=== PATIENT | male | born 2000 | race Caucasian/White ===

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

== ENCOUNTER 2021-12-03 17:07 | Emergency (ER) | payer OTHER, SELFPAY ==
--- OUTSIDE RECORDS SUMMARY | 2021-12-03 17:10 | XMS REPORT | Continuity of Care Document ---
:2000 Author Organization [facility] Address [address] [place] [address] Care Team Providers Name Role Phone Lab, Fam Pob I Attending Clinician Unavailable Miguel Jones Attending Clinician Miguel LOCKE Attending Clinician Unavailable Doctor Unassigned, Name Attending Clinician Unavailable Saqib GUILLORY Attending Clinician Payers Payer Name Policy Type Policy Number Effective Date Expiration Date S kizzy [employer] II [id number] 2020 00:00:00 Problems This patient has no known problems. Allergies, Adverse Reactions, Alerts Allergy Allergy Status Severity Reaction(s) Onset Inactive Treating Comm ents Source Name Type Date Date Clinician NO KNOWN Drug Active Univers ALLERGIE Class ity of S [facility] Social History Social Habit Start Date Stop Date Quantity Comments Source Exposure to Not sure [facility] SARS-CoV-2 (event) [facility] 2000 [facility] [place] [facility] Smoking Status Start Date Stop Date Source Unknown if ever [facility] Medications This patient has no known medications. Immunizations Ordered Filled Immunization Date Status Comments [facility] e Immunization Name Name Polio (IPV/OPV) 2004-01-17 Completed Universit y of 00:00:00 [facility] Polio (IPV/OPV) 2004-01-17 Completed Universit y of 00:00:00 [facility] Polio (IPV/OPV) 2004-01-17 Completed Universit y of 00:00:00 [facility] Polio (IPV/OPV) 2004-01-17 Completed Universit y of 00:00:00 [facility] DTAP 2004-01-16 Completed University of 00:00:00 [facility] 2004-01-16 Completed University of 00:00:00 [facility] DTAP 2004-01-16 Completed University of 00:00:00 [facility] 2004-01-16 Completed University of 00:00:00 [facility] DTAP 2004-01-16 Completed University of 00:00:00 [facility] 2004-01-16 Completed University of 00:00:00 [facility] DTAP 2004-01-16 Completed University of 00:00:00 [facility] 2004-01-16 Completed University of 00:00:00 [facility] Procedures Procedure Date / Time Performed Performing Clinician [facility] e ASSIGNMENT OF BENEFITS 2020-12-12 01:56:49 Doctor Unassigned, No [facility] Name [facility] [place] [facility] Encounters Start End Encounter Admission Attending Care Care Encounter Source Date/Time Date/Time Type Type Clinicians Facility Department ID 2020-12-11 2020-12-11 Laboratory Lab, Adc Fam Pob I [facility] [id number]. [id number] Univers 20:56:18 20:59:12 Only Gissell Locke [facility] [id number] ity of [place] [id number] Ayan as Professio [phone] [facility] [address] 2020-12-11 2020-12-11 Outpatient R [facility] [id number] Univers 20:40:00 20:40:00 [id number] ity of [facility] 2020-12-11 2020-12-11 [facility] [id number] Univers 20:40:00 20:40:00 GISSELL solorio [facility] 2020-12-11 2020-12-11 Orders Doctor SINGH [id number] Univers 00:00:00 00:00:00 Only HOANG Corral [id number] [facility] [id number] Ayan as [phone] [address] 2020-08-07 2020-08-07 Outpatient [facility] [id number] Univers 19:20:00 19:20:00 GISSELL solorio [facility] 2020-08-07 2020-08-07 Laboratory Lab, Adc Fam Pob I [place] [id number]. [id number] Univers 18:14:50 18:34:[address] [facility] [id number] ity of [place] [id number] [facility] [phone] [facility] [address] 2020-08-07 2020-08-07 Letter Doctor SAMANTHA [id number] Univers 00:00:00 00:00:00 (Out) Unassigned, LYNN HAVEN [id number] ity of [place] [facility] [id number] [facility] as [phone] [place] [address] Branch Results This patient has no known results.
[2021-12-03] MEDS ORDERED: TETANUS & DIPHTHERIA TOX,ADULT 0.5 ML VIAL ONE (19:42)
--- NOTE | 2021-12-03 19:48 | ER ---
Nurse's Notes [facility] Name: Declan Ann Age: 21 yrs Sex: Male : 2000 Arrival Date: 12/03/2021 Time: 17:38 Bed 11 Private MD: Diagnosis: Leg Laceration/ Open wound of lower leg-left Presentation: 12/03 17:38 Chief complaint: Patient states: Laceration to left benitez 6 days ago. Pt is worried it ld1 may be infected. Coronavirus screen: At this time, the client does not indicate any symptoms associated with coronavirus-19. Ebola Screen: No symptoms or risks identified at this time. Complicating Factors: There are no complicating factors for this patient. Initial Sepsis Screen: Does the patient meet any 2 criteria? No. Patient's initial sepsis screen is negative. Does the patient have a suspected source of infection? No. Patient's initial sepsis screen is negative. Risk Assessment: Do you want to hurt yourself or someone else? Patient reports no desire to harm self or others. Onset of symptoms was December 03, 2021. 17:38 Method Of Arrival: Ambulatory ld1 17:38 Acuity: LESLIE 4 ld1 Triage Assessment: 17:39 General: Appears in no apparent distress. comfortable, Behavior is calm, cooperative, ld1 appropriate for age. Pain: Complains of pain in left benitez Pain does not radiate. Pain currently is 5 out of 10 on a pain scale. EENT: No signs and/or symptoms were reported regarding the EENT system. Neuro: Level of Consciousness is awake, alert, obeys commands, Oriented to person, place, time, situation. Cardiovascular: Capillary refill < 3 seconds Patient's skin is warm and dry. Respiratory: Airway is patent Respiratory effort is even, unlabored. GI: Abdomen is round non-distended. Derm:. Injury Description: Laceration sustained to left benitez. Historical: - Allergies: 17:39 No Known Allergies; ld1 - Home Meds: 17:39 None [Active]; ld1 - PMHx: 17:39 None; ld1 - PSHx: 17:39 None; ld1 - Immunization history:: Adult Immunizations up to date, Client reports receiving the 2nd dose of the Covid vaccine. - Social history:: Smoking status: Patient denies any tobacco usage or history of. Patient/guardian denies using alcohol. Screenin:19 Abuse screen: Denies threats or abuse. Nutritional screening: No deficits noted. fu Tuberculosis screening: No symptoms or risk factors identified. Fall Risk None identified. Assessment: 20:10 General: Appears in no apparent distress. Behavior is calm, cooperative, appropriate fu for age. Pain: Denies pain. Neuro: Level of Consciousness is awake, alert, obeys commands, Oriented to person, place, time, situation, Moves all extremities. Gait is steady, Speech is normal. Derm: Wound noted left leg and left benitez. Musculoskeletal: Capillary refill < 3 seconds. Vital Signs: 17:38 BP 130 / 79; Pulse 94; Resp 18; Temp 98.2(O); Pulse Ox 100% on R/A; Weight 127.01 kg; ld1 Height 5 ft. 8 in. (172.72 cm); Pain 5/10; 20:27 BP 133 / 83; Pulse 75; Resp 16; Temp 98.2(O); Pulse Ox 100% on R/A; Pain 0/10; fu 17:38 Body Mass Index 42.57 (127.01 kg, 172.72 cm) ld1 ED Course: 17:38 Patient arrived in ED. am2 17:39 Triage completed. ld1 17:39 Arm band placed on right wrist. ld1 17:42 Laureano Keyes PA is PHCP. cp 17:42 Tristan Nolasco MD is Attending Physician. cp 19:37 XRAY Tib Fib LEFT In Process Unspecified. EDMS 19:37 Emily Dominguez, ANNALISA is Primary Nurse. ld1 20:19 No provider procedures requiring assistance completed. fu 20:19 Patient did not have IV access during this emergency room visit. fu 20:20 Patient has correct armband on for positive identification. Call light in reach. Pulse fu ox on. NIBP on. Administered Medications: 19:38 Drug: Tetanus-Diphtheria Toxoid Adult 0.5 ml {[employer]: [employer]. Exp: ld1 09/13/2023. Lot #: [id number]. } Route: IM; Site: left deltoid; 20:25 Follow up: Response: No adverse reaction fu Outcome: 19:48 Discharge ordered by . cp 20:29 Discharged to home ambulatory. fu 20:29 Condition: good 20:29 Discharge instructions given to patient, Instructed on discharge instructions, follow up and referral plans. Demonstrated understanding of instructions, follow-up care, Prescriptions given X 2. 20:30 Patient left the ED. fu Signatures: Dispatcher [employer] EDMS Laureano Keyes PA PA cp Moreno, Amanda am2 Shad Gonzales RN RN fu Emily Dominguez RN RN ld1
--- NOTE | 2021-12-03 19:48 | EDPHYS ---
Physician Documentation [facility] Name: Declan Ann Age: 21 yrs Sex: Male : 2000 Arrival Date: 12/03/2021 Time: 17:38 Bed 11 Private MD: ED Physician Tristan Nolasco HPI: 12/03 19:00 This 21 yrs old Male presents to ER via Ambulatory with complaints of Laceration To Leg.cp 19:00 The patient has a laceration occurred at home. The laceration(s) is(are) located on the cp anterior left lower leg. 19:00 Onset: The symptoms/episode began/occurred last week. Associated signs and symptoms: cp Pertinent negatives: heavy bleeding, numbness distal to injury. Historical: - Allergies: 17:39 No Known Allergies; ld1 - Home Meds: 17:39 None [Active]; ld1 - PMHx: 17:39 None; ld1 - PSHx: 17:39 None; ld1 - Immunization history:: Adult Immunizations up to date, Client reports receiving the 2nd dose of the Covid vaccine. - Social history:: Smoking status: Patient denies any tobacco usage or history of. Patient/guardian denies using alcohol. ROS: 19:05 Skin: Positive for laceration(s), of the anterior left lower leg. cp 19:05 Eyes: Negative for injury, pain, redness, and discharge. cp 19:05 Constitutional: Negative for body aches, chills, fever. 19:05 Neck: Negative for pain with movement, pain at rest. 19:05 Respiratory: Negative for cough, shortness of breath. 19:05 Abdomen/GI: Negative for abdominal pain, vomiting, diarrhea, constipation. 19:05 : Negative for urinary symptoms. 19:05 Neuro: Negative for altered mental status, headache, numbness, weakness. 19:05 All other systems are negative. Exam: 19:10 Constitutional: The patient appears in no acute distress, alert, awake, non-toxic, well cp developed, well nourished, obese. 19:10 Head/Face: Normocephalic, atraumatic. cp 19:10 Eyes: Periorbital structures: appear normal, Conjunctiva: normal, no exudate, no injection, Sclera: no appreciated abnormality, Lids and lashes: appear normal, bilaterally. 19:10 ENT: External ear(s): are unremarkable, Nose: is normal, Mouth: Lips: moist, Oral mucosa: moist, Posterior pharynx: is normal, airway is patent. 19:10 Chest/axilla: Inspection: normal. 19:10 Cardiovascular: Rate: normal, Rhythm: regular. 19:10 Respiratory: the patient does not display signs of respiratory distress, Respirations: normal, no use of accessory muscles, no retractions, labored breathing, is not present, Breath sounds: are clear throughout, no decreased breath sounds, no stridor, no wheezing. 19:10 Abdomen/GI: Inspection: abdomen appears normal. 19:10 Musculoskeletal/extremity: Extremities: grossly normal except: noted in the anterior left lower leg: erythema, laceration, swelling, tenderness, Pulses: noted to be 2+ in the left dorsalis pedis artery, Sensation intact. Vital Signs: 17:38 BP 130 / 79; Pulse 94; Resp 18; Temp 98.2(O); Pulse Ox 100% on R/A; Weight 127.01 kg; ld1 Height 5 ft. 8 in. (172.72 cm); Pain 5/10; 20:27 BP 133 / 83; Pulse 75; Resp 16; Temp 98.2(O); Pulse Ox 100% on R/A; Pain 0/10; fu 17:38 Body Mass Index 42.57 (127.01 kg, 172.72 cm) ld1 MDM: 18:35 Patient medically screened. cp 19:00 Differential diagnosis: superficial laceration, cellulitis, abscess, foreign body. cp 19:46 Data reviewed: vital signs, nurses notes, radiologic studies, plain films. Test cp interpretation: by ED physician or midlevel provider: xrays of left lower leg negative for fracture and/or foreign body. Counseling: I had a detailed discussion with the patient and/or guardian regarding: the historical points, exam findings, and any diagnostic results supporting the discharge/admit diagnosis, radiology results, to return to the emergency department if symptoms worsen or persist or if there are any questions or concerns that arise at home. Response to treatment: the patient's symptoms have mildly improved after treatment. 12/03 18:48 Order name: XRAY Tib Fib LEFT; Complete Time: 20:09 cp 12/03 20:09 Interpretation: Report reviewed. cp 12/03 18:48 Order name: Wound Care: please clean and dress; Complete Time: 19:38 cp Administered Medications: 19:38 Drug: Tetanus-Diphtheria Toxoid Adult 0.5 ml {Administrative Judge: [employer]. Exp: ld1 09/13/2023. Lot #: [id number]. } Route: IM; Site: left deltoid; 20:25 Follow up: Response: No adverse reaction fu Disposition Summary: 12/03/21 19:48 Discharge Ordered Location: Home cp Problem: new cp Symptoms: have improved cp Condition: Stable cp Diagnosis - Leg Laceration/ Open wound of lower leg - left cp Followup: cp - With: Private Physician - When: 2 - 3 days - Reason: Worsening of condition Discharge Instructions: - Discharge Summary Sheet cp - Wound Care, Adult cp Forms: - Medication Reconciliation Form cp - Thank You Letter cp - Antibiotic Education cp - Prescription Opioid Use cp Prescriptions: - mupirocin 2 % Topical ointment - apply 1 application by TOPICAL route 2-3 times daily for 10 days; 45 gram; cp Refills: 0, Product Selection Permitted - Bactrim DS 800-160 mg Oral Tablet - take 1 tablet by ORAL route every 12 hours for 10 days; 20 tablet; Refills: 0, cp Product Selection Permitted Signatures: Dispatcher [employer] EDLaureano Leogn PA PA cp Dibbern, Lauren RN RN ld1 Shad Gonzales RN fu
--- NOTE | 2021-12-03 20:04 | RAD REPORT ---
EXAM DESCRIPTION: RAD - Tib Fib Left - 12/03/2021 7:35 pm CLINICAL HISTORY: PAIN COMPARISON: No comparisons FINDINGS: No acute fracture. No malalignment. No significant focal degenerative changes. IMPRESSION: No acute osseous abnormality involving the tibia or fibula.
[2021-12-03 20:38] VITALS: TEMP 98.2; O2SAT 100
[2021-12-03 20:40] VITALS: BP 133/83
== END 2021-12-03 20:30 | disposition home or self-care (01) ==
LOC: ER 17:07
DX: S81.812A Laceration without foreign body, left lower leg, initial encounter (principal); Z23 Encounter for immunization
CPT/HCPCS: 90471; 90714; 99284